=== PATIENT | female | born 1945 | race Caucasian/White ===

== ENCOUNTER 2016-09-24 13:23 | Outpatient (CLI) | payer MEDICARE, OTHER | END 2016-09-24 13:24 | disposition home or self-care (01) | DX: Z12.31 Encounter for screening mammogram for malignant neoplasm of breast (principal); Z85.3 Personal history of malignant neoplasm of breast; Z80.3 Family history of malignant neoplasm of breast ==

== ENCOUNTER 2016-09-24 13:24 | Outpatient (CLI) | payer MEDICARE, OTHER | END 2016-09-24 13:25 | disposition home or self-care (01) | DX: M85.89 Other specified disorders of bone density and structure, multiple sites (principal) ==

== ENCOUNTER 2016-10-26 11:23 | Outpatient (CLI) | payer MEDICARE, OTHER | END 2016-10-26 11:24 | disposition home or self-care (01) | DX: Z85.3 Personal history of malignant neoplasm of breast (principal); M85.9 Disorder of bone density and structure, unspecified ==

== ENCOUNTER 2016-10-28 07:19 | Day surgery (SDC) | payer MEDICARE, OTHER ==
[2016-10-28] MEDS ORDERED: TROPICAMIDE 1% OPHTH 2 ML DROPS OPTH ONE (07:45)
[2016-10-28] MEDS ORDERED: CYCLOPENTOLATE 1% OPHTH DROPS 2 ML OPTH ONE (07:45)
[2016-10-28] MEDS ORDERED: KETOROLAC 0.45% OPHTH DROPS OPTH ONE (07:45)
[2016-10-28] MEDS ORDERED: LACTATED RINGERS 500 ML IV ONE (07:57)
[2016-10-28] MEDS ORDERED: PROPOFOL 200 MG/20 ML VIAL IVP ONE (08:30)
[2016-10-28] MEDS ORDERED: MIDAZOLAM 2 MG/2 ML VIAL IVP ONE (08:30)
[2016-10-28] MEDS ORDERED: BSS/LIDOCAINE/EPINEPHRINE 1 ML SYRINGE IO ONE (08:32)
[2016-10-28] MEDS ORDERED: CHONDR SULF/HYALURONATE SYRINGE IO ONE (08:32)
[2016-10-28] MEDS ORDERED: EPINEPHrine 1 MG/ML AMP IO ONE (08:32)
[2016-10-28] MEDS ORDERED: levoFLOXacin 0.5% OPHTH DROPS 5 ML OPTH ONE (08:32)
[2016-10-28] MEDS ORDERED: PROPARACAINE 0.5% OPHTH DROPS 15 ML OPTH ONE (08:32)
[2016-10-28] MEDS ORDERED: BRIMONIDINE 0.2% OPHTH DROPS 5 ML OPTH ONE (08:32)
[2016-10-28] MEDS ORDERED: TETRACAINE 0.5% OPHTH DROPS 4 ML OPTH ONE (08:32)
== END 2016-10-28 07:20 | disposition home or self-care (01) ==
PROC: 08RK3JZ Replacement of Left Lens with Synthetic Substitute, Percutaneous Approach (ICD-10-PCS; principal; 2016-10-28 08:30)
DX: H26.9 Unspecified cataract (principal)
CPT/HCPCS: 66984; V2632

== ENCOUNTER 2016-11-11 07:07 | Day surgery (SDC) | payer MEDICARE, OTHER ==
[2016-11-11] MEDS ORDERED: LACTATED RINGERS 500 ML IV ONE (07:14)
[2016-11-11] MEDS ORDERED: CYCLOPENTOLATE 1% OPHTH DROPS 2 ML OPTH ONE (07:20)
[2016-11-11] MEDS ORDERED: KETOROLAC 0.45% OPHTH DROPS OPTH ONE (07:20)
[2016-11-11] MEDS ORDERED: TROPICAMIDE 1% OPHTH 2 ML DROPS OPTH ONE (07:20)
[2016-11-11] MEDS ORDERED: MIDAZOLAM 2 MG/2 ML VIAL IVP ONE (08:30)
[2016-11-11] MEDS ORDERED: PROPOFOL 200 MG/20 ML VIAL IVP ONE (08:30)
[2016-11-11] MEDS ORDERED: LIDOCAINE-MPF 2% 5 ML VIAL IM ONE (08:30)
[2016-11-11] MEDS ORDERED: CHONDR SULF/HYALURONATE SYRINGE IO ONE (08:31)
[2016-11-11] MEDS ORDERED: TETRACAINE 0.5% OPHTH DROPS 4 ML OPTH ONE (08:31)
[2016-11-11] MEDS ORDERED: PROPARACAINE 0.5% OPHTH DROPS 15 ML OPTH ONE (08:31)
[2016-11-11] MEDS ORDERED: BRIMONIDINE 0.2% OPHTH DROPS 5 ML OPTH ONE (08:31)
[2016-11-11] MEDS ORDERED: levoFLOXacin 0.5% OPHTH DROPS 5 ML OPTH ONE (08:31)
[2016-11-11] MEDS ORDERED: EPINEPHrine 1 MG/ML AMP IO ONE (08:31)
[2016-11-11] MEDS ORDERED: BSS/LIDOCAINE/EPINEPHRINE 1 ML SYRINGE IO ONE (08:32)
== END 2016-11-11 07:08 | disposition home or self-care (01) ==
PROC: 08RJ3JZ Replacement of Right Lens with Synthetic Substitute, Percutaneous Approach (ICD-10-PCS; principal; 2016-11-11 08:15)
DX: H25.11 Age-related nuclear cataract, right eye (principal)
CPT/HCPCS: 66984; V2632

== ENCOUNTER 2018-03-11 11:24 | Outpatient (CLI) | payer MEDICARE, OTHER ==
--- NOTE | 2018-03-14 15:25 | Mammography Report ---
Procedure Date: 03/11/2018 Accession Number: [id number] / [id number] Procedure: BRADY - Screening Mammo Dig Bilat CPT Code: FULL RESULT: EXAM: Screening Mammo Dig Bilat DATE: 03/11/2018 11:30 AM CLINICAL HISTORY: 73-year-old nulliparous patient with personal history of left breast cancer status post lumpectomy and radiation therapy, family history of breast cancer for screening TECHNIQUE: Bilateral CC and MLO views were obtained. COMPARISON: 09/24/2016, 09/25/2015, 01/29/2015, 06/01/2014, 05/24/2013, 06/01/2012, 02/23/2011, 02/06/2010 FINDINGS: The breasts demonstrate heterogeneously dense fibroglandular parenchyma bilaterally. Postoperative and posttreatment changes in the left breast are stable. Coarse and punctate, typically benign calcifications are present. No suspicious masses, clustered microcalcifications, or regions of architectural distortion are identified. IMPRESSION: Benign findings RECOMMENDATION: Routine annual screening unless otherwise clinically indicated. BIRADS CATEGORY 2: Benign findings STANDARD QUALIFYING STATEMENTS: 1. This examination was reviewed with the aid of Computer-Aided Detection (CAD). 2. A negative or benign imaging report should not delay biopsy if clinically suspicious findings are present. Consider surgical consultation if warrented. More than 5% of cancers are not identified by imaging. 3. Dense breasts may obscure an underlying neoplasm.
== END 2018-03-11 11:25 | disposition home or self-care (01) ==
LOC: DI 11:24
PROVIDERS: ATTEND Physician Assistant
DX: Z12.31 Encounter for screening mammogram for malignant neoplasm of breast (principal); Z85.3 Personal history of malignant neoplasm of breast; Z80.3 Family history of malignant neoplasm of breast
CPT/HCPCS: 77067

== ENCOUNTER 2018-03-21 20:59 | Emergency (ER) | payer MEDICARE, OTHER ==
[2018-03-21] MEDS ORDERED: PROPARACAINE 0.5% OPHTH DROPS 15 ML LEFTEYE STA (21:43)
--- NOTE | 2018-03-21 21:59 | ED Physician Documentation ---
PD HPI OPHTHO - Stated complaint Stated Complaint: SAP IN L/EYE - Chief complaint Chief Complaint: Heent - History obtained from History obtained from: Patient, Family - History of Present Illness Timing - onset: Today Timing - details: Abrupt onset, Still present Location: Left Quality / character: Itching, Burning Associated symptoms: Redness, Discharge Contributing factors: Other (exposed to euphrobia) Similar symptoms before: Has not had sx before Recently seen: Not recently seen - Additional information Additional information: Patient is a 73 year old female presenting to the emergency department for left eye pain. patient states that she got euphorbia in her eye today when she was working outside. Patient is unsure the amount. Patient states that her eye has been irritated and painful since that time. patient denies any other injuries or trauma. 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 : None HEENT: None Psych: None Musculoskeletal: None Derm: None - Past Surgical History Past Surgical History: No /MILITARY PAY CLERK: Tubal ligation - Present Medications Home Medications: Ambulatory Orders Medication Instructions Recorded Confirmed Amitriptyline [Elavil] 25 mg PO DAILY 10/28/16 03/21/18 Zolpidem [Ambien] 5 mg PO HS 10/28/16 03/21/18 Multivit with Calcium,Iron,Min 1 each PO DAILY 11/11/16 03/21/18 [Multiple Vitamins For Women] - Allergies Allergies/Adverse Reactions: Allergies Allergy/AdvReac Type Severity Reaction Status Date / Time No Known Drug Allergies Allergy Verified 03/21/18 21:21 - Social History Does the pt smoke?: No Smoking Status: Never smoker Does the pt drink ETOH?: Yes Does the pt have substance abuse?: No - Immunizations Immunizations are current?: Yes PD ED PE NORMAL - Vitals Vital signs reviewed: Yes - General General: Alert and oriented X 3 - HEENT HEENT: Atraumatic - Cardiac Cardiac: RRR - Respiratory Respiratory: No respiratory distress - Derm Derm: Normal color - Extremities Extremities: No deformity - Neuro Neuro: Alert and oriented X 3, No motor deficit, Normal speech Eye Opening: Spontaneous PD ED PE EXPANDED - General General: Alert, In Pain - Eyes Eyes: Scleral icterus. No: Corneal FB, Corneal abrasion, Corneal ulcer, Fluorescein uptake Results - Vitals Vitals: Vital Signs - 24 hr 03/21/18 03/21/18 21:19 23:15 Temperature 36.4 C L Heart Rate 71 70 Respiratory 18 16 Rate Blood Pressure 179/94 H 149/86 H O2 Saturation 98 99 Oxygen O2 Source Room air PD MEDICAL DECISION MAKING - ED course Complexity details: reviewed old records, reviewed results, re-evaluated patient , considered differential, d/w patient, d/w portrait consultant ED course: Patient was seen and examined at bedside. patient was treated with properacaine and kenya lens was placed. poison control was contacted and they recommended irrigation and follow up with her eye doctor. Patient's eye was rinsed with two liters of saline. Patient eye was viewed with fluorescein and showed no uptake. patient reported she would follow up with her doctor tomorrow. patient required no further work up and was stable for discharge with outpatient follow up. - Sepsis Event Vital Signs: Vital Signs - 24 hr 03/21/18 03/21/18 21:19 23:15 Temperature 36.4 C L Heart Rate 71 70 Respiratory 18 16 Rate Blood Pressure 179/94 H 149/86 H O2 Saturation 98 99 Oxygen O2 Source Room air Departure - Departure Disposition: 01 Home, Self Care Clinical Impression: Redness of eye Condition: Good Instructions: Red Eye Tx Follow-Up: primary,eye doctor [Other] - Tomorrow Comments: Your eyes today were flushed with normal saline. Your eye will likely be sore the next few days. It is important that you follow up with your eye doctor tomorrow. you may return to the emergency department at any time for new worsening or uncontrollable symptoms. Discharge Date/Time: 03/21/18 23:15
[2018-03-21 23:28] VITALS: BP 149/86
== END 2018-03-21 23:15 | disposition home or self-care (01) ==
LOC: ED 20:59
DX: H57.8 Other specified disorders of eye and adnexa (principal); Z77.128 Contact with and (suspected) exposure to other hazards in the physical environment
CPT/HCPCS: 99283

== ENCOUNTER 2018-06-24 08:55 | Outpatient (CLI) | payer MEDICARE, OTHER ==
[2018-06-24 10:49] LABS: CHOLESTEROL 205 mg/dL; HDL CHOLESTEROL 102 mg/dL; LDL CHOLESTEROL,CALCULATED 60 mg/dL; LDL/HDL RATIO 0.6 (<4.4); VLDL CHOLESTEROL 43 mg/dL
== END 2018-06-24 08:56 | disposition home or self-care (01) ==
LOC: LAB.F 08:55
PROVIDERS: ATTEND Physician Assistant
DX: E78.5 Hyperlipidemia, unspecified (principal)
CPT/HCPCS: 36415; 80061; 83721

== ENCOUNTER 2019-10-20 22:27 | Emergency (ER) | payer MEDICARE, OTHER ==
--- NOTE | 2019-10-20 22:38 | ED Physician Documentation ---
History of Present Illness - Stated complaint Stated Complaint: HEADACHE, LOW BODY TEMP - Chief complaint Chief Complaint: Neuro - History obtained from History obtained from: Patient (The patient is a 74-year-old female who says she just was discharged from a separate hospital after she went in for a headache she reports that they did nothing for her there and presents here for second evaluation. She describes a dull headache to the top of her head she reports some mild flulike symptoms for the past 1 to 2 days to include cough and a runny nose and some head pressure she denies being anticoagulated or any trauma she denies neck pain or rashes and reports she is up-to-date on all of her immunizations denies chest pain shortness of breath neck pain or dysuria.The headache is not the worst headache of her life its not sudden in onset and it is not maximum in intensity.) Review of Systems Ten Systems: 10 systems reviewed and negative Constitutional: reports: Reviewed and negative Eyes: reports: Reviewed and negative Ears: reports: Reviewed and negative Nose: reports: Reviewed and negative Throat: reports: Reviewed and negative Cardiac: reports: Reviewed and negative Respiratory: reports: Reviewed and negative GI: reports: Reviewed and negative : reports: Reviewed and negative Skin: reports: Reviewed and negative Musculoskeletal: reports: Reviewed and negative Neurologic: reports: Headache Psychiatric: reports: Reviewed and negative Endocrine: reports: Reviewed and negative Immunocompromised: reports: Reviewed and negative PD PAST MEDICAL HISTORY - Past Medical History Cardiovascular: None Respiratory: None Endocrine/Autoimmune: None GI: None 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: Breast 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 : None HEENT: None Psych: None Musculoskeletal: None Derm: None - Past Surgical History Past Surgical History: No /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: Tubal ligation - Present Medications Home Medications: Ambulatory Orders Medication Instructions Recorded Confirmed Amitriptyline [Elavil] 25 mg PO DAILY 10/28/16 03/21/18 Zolpidem [Ambien] 5 mg PO HS 10/28/16 03/21/18 Multivit with Calcium,Iron,Min 1 each PO DAILY 11/11/16 03/21/18 [Multiple Vitamins For Women] - Allergies Allergies/Adverse Reactions: Allergies Allergy/AdvReac Type Severity Reaction Status Date / Time No Known Drug Allergies Allergy Verified 10/20/19 22:36 - Social History Does the pt smoke?: No Smoking Status: Never smoker Does the pt drink ETOH?: Yes Does the pt have substance abuse?: No - Immunizations Immunizations are current?: Yes PD ED PE NORMAL - Vitals Vital signs reviewed: Yes - General General: Alert and oriented X 3, No acute distress, Well developed/nourished - HEENT HEENT: Atraumatic, PERRL, EOMI, Ears normal, Moist mucous membranes, Pharynx benign, Dentition benign - Neck Neck: Supple, no meningeal sign, No adenopathy, No JVD - Cardiac Cardiac: RRR, No murmur, Strong equal pulses - Respiratory Respiratory: No respiratory distress, Clear bilaterally - Abdomen Abdomen: Normal bowel sounds, Soft, Non tender, Non distended, No organomegaly - Back Back: No CVA TTP, No spinal TTP - Derm Derm: Normal color, Warm and dry, No rash - Extremities Extremities: No deformity, No tenderness to palpate, Normal ROM s pain, No edema - Neuro Neuro: Alert and oriented X 3, 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, No motor deficit, No sensory deficit, Normal speech - Psych Psych: Normal mood, Normal affect Results - Vitals Vitals: Vital Signs - 24 hr 10/20/19 22:31 Temperature 36.2 C L Heart Rate 88 Respiratory 17 Rate Blood Pressure 120/70 O2 Saturation 95 Oxygen O2 Source Room air - Labs Labs: Laboratory Tests 10/20/19 10/20/19 23:01 23:01 WBC 7.4 RBC 3.91 L Hgb 12.2 Hct 36.5 L MCV 93.4 MCH 31.2 H MCHC 33.4 RDW 13.1 Plt Count 206 MPV 8.5 Neut # (Auto) Not Reportable Lymph # (Auto) Not Reportable [place] # (Auto) Not Reportable Eos # (Auto) Not Reportable Baso # (Auto) Not Reportable Absolute Nucleated RBC Not Reportable Total Counted 100 Band Neuts % (Manual) 17 H Abnorm Lymph % (Manual) 0 Nucleated RBC % Not Reportable Neutrophils # (Manual) 6.7 H Lymphocytes # (Manual) 0.5 L Monocytes # (Manual) 0.2 Eosinophils # (Manual) 0.0 Basophils # (Manual) 0.0 Differential Comment MANUAL DIFFERENTIAL WBC Morphology NORMAL APPEARANCE Platelet Estimate NORMAL (130-450,000) Platelet Morphology NORMAL APPEARANCE RBC Morph Micro Appear NORMAL APPEARANCE Sodium 136 Potassium 2.9 L Chloride 103 Carbon Dioxide 20 L Anion Gap 13.0 BUN 15 Creatinine 0.6 Estimated GFR (MDRD) 98 Glucose 117 H Calcium 8.1 L PD MEDICAL DECISION MAKING - ED course Complexity details: re-evaluated patient (sauer resolved.), other (Patient's history and exam are benign she does complain of a headache that is new for her its not the worst headache of her life its not sudden in onset its not maximum in intensity.If CT scan of the head will be ordered. As well as screening blood work will provide an IV with IV fluids and IV Toradol and reevaluate the patient.) Departure - Departure Disposition: 01 Home, Self Care Clinical Impression: Headache Qualifiers: Headache type: other headache syndrome Qualified Code(s): G44.89 - Other headache syndrome Condition: Good Instructions: ED Cephalgia Unspecified Follow-Up: Lesli Joseph PA [Primary Care Provider] - Within 3 Days
[2019-10-20] MEDS ORDERED: KETOROLAC 30 MG/ML VIAL IVP STA (22:52)
[2019-10-20] MEDS ORDERED: SODIUM CHLORIDE 0.9% 1,000 ML IV ONE (22:52)
[2019-10-20] MEDS ORDERED: fentaNYL 100 MCG/2 ML VIAL IVP STA (22:59)
[2019-10-20 23:11] LABS: BASOPHILS % (AUTO) 0.4 %; EOSINOPHILS % (AUTO) 2.7 %; HGB - HEMOGLOBIN 12.2 g/dL (12.0-16.0); LYMPHOCYTES % (AUTO) 4.7 %; MEAN CORPUSCULAR HEMOGLOBIN 31.2 pg (27.0-31.0); MEAN CORPUSCULAR HGB CONC 33.4 g/dL (32.0-36.0); MEAN CORPUSCULAR VOLUME 93.4 fL (81.0-99.0); MEAN PLATELET VOLUME 8.5 fL (7.9-10.8); MONOCYTES % (AUTO) 6.5 %; NEUTROPHILS % (AUTO) 85.3 %; PLT - PLATELET COUNT 206 10^3/uL (130-450); RED BLOOD COUNT 3.91 10^6/uL (4.20-5.40); RED CELL DISTRIBUTION WIDTH 13.1 % (12.0-15.0); WHITE BLOOD COUNT 7.4 x10^3/uL (4.8-10.8)
[2019-10-20 23:15] LABS: CALCIUM 8.1 mg/dL (8.5-10.3); CREATININE 0.6 mg/dL (0.4-1.0)
[2019-10-20 23:27] LABS: ABNORMAL LYMPHS % (MANUAL) 0 %
[2019-10-20 23:47] LABS: BAND NEUTROPHILS % (MANUAL) 17 %; LYMPHOCYTES # (MANUAL) 0.5 10^3/uL (1.5-3.5); LYMPHOCYTES % (MANUAL) 7 %; MONOCYTES # (MANUAL) 0.2 10^3/uL (0.0-1.0); PLATELET MORPHOLOGY NORMAL APPEARANCE (NORMAL); RBC MORPHOLOGY (MULTIPLE) NORMAL APPEARANCE (NORMAL)
[2019-10-20 23:48] LABS: DIFFERENTIAL COMMENT MANUAL DIFFERENTIAL; PLATELET ESTIMATE, MANUAL NORMAL (130-450,000) (NORMAL)
--- NOTE | 2019-10-21 00:04 | CT Report ---
Reason: headache Procedure Date: 10/20/2019 Accession Number: [id number] / [id number] Procedure: CT - HEAD WO CPT Code: Final Report FULL RESULT: EXAM: CT HEAD EXAM DATE: 10/20/2019 11:31 PM. CLINICAL HISTORY: Headache. COMPARISON: None. TECHNIQUE: Multiaxial CT images were obtained from the foramen magnum to the vertex. Reformats: Sagittal and coronal. IV contrast: None. In accordance with CT protocol optimization, one or more of the following dose reduction techniques were utilized for this exam: automated exposure control, adjustment of mA and/or KV based on patient size, or use of iterative reconstructive technique. FINDINGS: Parenchyma: No intraparenchymal hemorrhage. No evidence of mass, midline shift or CT findings of acute infarction. Vasquez-white differentiation is distinct. Diffuse mild chronic microangiopathic white matter changes are evident. Extraaxial Spaces: Normal for age. No subdural or epidural collections identified. Ventricles: The ventricles and cortical sulci are enlarged, consistent with age-related tissue loss. Sinuses: Imaged paranasal sinuses, orbits, and mastoids show no significant abnormality. Bones: No evidence of fracture or calvarial defect. Other: None. IMPRESSION: Mild senescent changes without evidence of acute intracranial abnormality. [facility]
[2019-10-21 00:16] VITALS: BP 131/62
== END 2019-10-21 00:29 | disposition home or self-care (01) ==
LOC: ED 22:27
DX: G44.89 Other headache syndrome (principal)
CPT/HCPCS: 36415; 70450; 80048; 85025; 96374; 99284

== ENCOUNTER 2023-03-18 08:00 | Outpatient (CLI) | payer MEDICARE, OTHER | END 2023-03-18 23:59 | disposition home or self-care (01) | LOC: LAB.S 08:00 | PROVIDERS: ATTEND Physician Assistant Medical | DX: N39.0 Urinary tract infection, site not specified (principal) | CPT/HCPCS: 87086 ==